=== PATIENT | male | born 1980 | race Caucasian/White ===

== ENCOUNTER 2019-01-22 05:38 | Day surgery (SDC) | payer OTHER ==
[2019-01-18 12:00] VITALS: BMI 25.2
[2019-01-22] MEDS ORDERED: Midazolam HCl 2 mg/2 ml Vial ONE (06:26)
[2019-01-22] MEDS ORDERED: Fentanyl 250 MCG/5 ML VIAL ONE (06:26)
[2019-01-22] MEDS ORDERED: Thrombin 5000 UNITS/5 ML VIAL ONE (06:45)
[2019-01-22] MEDS ORDERED: Tamsulosin HCl 0.4 MG CAP ONE (08:39)
[2019-01-22] MEDS ORDERED: Fentanyl 100 MCG/2 ML VIAL ONE ×2 (08:41→08:57)
[2019-01-22] MEDS ORDERED: Acetaminophen/Codeine 30-300mg Tablet ONE (10:03)
--- NOTE | 2019-01-22 12:10 | OP ---
DATE OF PROCEDURE: 01/22/2019 METHOD CONSULTANT: Froy Lebron PA-C INDICATION: Pain. DIAGNOSIS: Cervical radiculopathy. PROCEDURE PERFORMED: Anterior cervical diskectomy and fusion, C4 through C6. ANESTHESIA: General. DESCRIPTION OF PROCEDURE: The patient was brought into the operating room and placed under general anesthesia. He was placed on table in the supine position. A transverse incision was planned over the lateral aspect of the neck on the right. After prepping and draping and after an appropriate perioperative pause, the incision was created. The underlying platysma muscle was identified and incised. A blunt tissue plane anterior to the sternocleidomastoid muscle was used to gain access to the prevertebral space. Self-retaining retractors were placed in the wound for optimal exposure. After confirming the appropriate levels with C-arm fluoroscopy, an annulotomy was performed in the C5-C6 and the C4-C5 disk spaces. All disk material was removed as well as anterior and posterior osteophytes to decompress the exiting nerve roots and underlying spinal canal. A 7-mm lordotic PEEK cage was then placed in the C5-C6 and a 6-mm lordotic PEEK cage was placed in the C4-C5. An anterior cervical plate was then fashioned to the front of spine and secured with a total of 6 screws. Midline and lateral structures were then inspected and found to be free from significant trauma. The wound was irrigated. Hemostasis was maintained throughout. The wound was then closed in anatomic layers and a pressure dressing was applied. There were no known procedural complications. Job ID: [id number]
[2019-01-22] MEDS ORDERED: Lidocaine 1% PF 5 ML VIAL ONE (14:52)
[2019-01-22] MEDS ORDERED: Glycopyrrolate 0.2 MG/ML 5 ML SYRINGE ONE (14:52)
[2019-01-22] MEDS ORDERED: Rocuronium Bromide 10 MG/ML (10ML VIAL) ONE (14:52)
[2019-01-22] MEDS ORDERED: Ondansetron PF 4 MG/2 ML Vial ONE (14:52)
[2019-01-22] MEDS ORDERED: Dexamethasone 20 MG/5 ML VIAL ONE (14:52)
[2019-01-22] MEDS ORDERED: PROPOFOL 200 MG/20 ML VIAL ONE (14:52)
== END 2019-01-22 11:09 | disposition home or self-care (01) ==
LOC: SDC 05:38
PROVIDERS: ATTEND Neurological Surgery
PROC: 0RG20A0 Fusion of 2 or more Cervical Vertebral Joints with Interbody Fusion Device, Anterior Approach, Anterior Column, Open Approach (ICD-10-PCS; principal; 2019-01-22)
PROC: 0RT30ZZ Resection of Cervical Vertebral Disc, Open Approach (ICD-10-PCS; principal; 2019-01-22)
DX: M54.12 Radiculopathy, cervical region (principal); M48.02 Spinal stenosis, cervical region; G95.9 Disease of spinal cord, unspecified; Z79.899 Other long term (current) drug therapy; Z88.8 Allergy status to other drugs, medicaments and biological substances
CPT/HCPCS: 76000; C1713; C1776; J0690; J1100; J2001; J2250; J2405; J2704; J3010